=== PATIENT | female | born 1965 | race Caucasian/White ===

== ENCOUNTER 2017-06-25 09:15 | Observation (INO) | payer BC, OTHER ==
[2017-06-25] MEDS ORDERED: Sodium Chloride 0.9% 2.5 ML Syringe FLUSH PRN (09:32)
[2017-06-25] MEDS ORDERED: Sodium Chloride 0.9% 10 ML Syringe FLUSH PRN (09:32)
[2017-06-25] MEDS ORDERED: Aspirin 81 MG Tab.Chew PO ONE (09:32)
--- NOTE | 2017-06-25 09:37 | EDM.PDOC ---
ED HPI GENERAL MEDICAL PROBLEM - General Chief Complaint: Chest Pain Stated Complaint: CHEST PAIN Time Seen by Provider: 06/25/17 09:21 - History of Present Illness INITIAL COMMENTS - FREE TEXT/NARRATIVE: HISTORY AND PHYSICAL: History of present illness: The patient is a 52-year-old female who has no regular medical provider has a history of mitral valve prolapse and going through the menopause naturally and presents with complaints of acute onset of chest pain located underneath her left breast that started after she was sitting on the floor writing out cards and stood up. Patient said she had a normal day yesterday and slept normally and woke up at her usual time. She was having a normal morning when this occurred. She has no systemic complaints of cough runny nose sore throat and abdominal pain vomiting or diarrhea and has had no leg pain or swelling. Patient states that when she stood up she felt a sudden sharp pain underneath her breasts on the left and has been coming and going in nature. It is very localized to one area and does not radiate. It is not associated with diaphoresis nausea or abdominal pain lightheadedness but she did have some shortness of breath. She had a cardiac workup including EKG and echocardiogram 7 years ago for what was diagnosed as panic attacks but never had a stress test at that time. 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 for many years. She has no social history and her only family history is of a father who had a heart attack at 44 years of age but who was morbidly obese at over 400 pounds and had other medical conditions. Currently in the ED patient has no discomfort. She says that she took in Ecotrin before coming here but it was . The patient states that deep breaths and movement did not make the pain occur. She has no recent history of trauma Review of systems: As per history of present illness and below otherwise all systems reviewed and negative. Past medical history: As per history of present illness and as reviewed below otherwise noncontributory. Surgical history: As per history of present illness and as reviewed below otherwise noncontributory. Social history: No reported history of drug or alcohol abuse. Family history: As per history of present illness and as reviewed below otherwise noncontributory. Physical exam: Gen.: Well-developed well-nourished female who speaks clearly and easily in the ED without distress. Vital signs were noted by me. HEENT: Atraumatic, normocephalic, negative for conjunctival pallor or scleral icterus, mucous membranes moist, throat clear, neck supple, nontender, trachea midline. Lungs: Clear to auscultation, breath sounds equal bilaterally, chest nontender. There is no work of breathing no palpable bony deformities crepitus or erythema and no left breast tenderness. I unable to reproduce the pain on palpation or with deep breaths. Heart: S1S2, regular, negative for clicks, rubs, or JVD. Abdomen: Soft, nondistended, nontender. Negative for masses or hepatosplenomegaly. Negative for costovertebral tenderness. Pelvis: Stable nontender. Genitourinary: Deferred. Rectal: Deferred. Extremities: Atraumatic, negative for cords or calf pain. Neurovascular unremarkable. No pedal edema or leg asymmetry Neuro: Awake, alert, oriented. Cranial nerves II through XII unremarkable. Cerebellum unremarkable. Motor and sensory unremarkable throughout. Exam nonfocal. Skin: Normal turgor no evidence of diaphoresis and no overt rashes or lesions Diagnostics: EKG chest x-ray CBC CMP INR amylase lipase troponin d-dimer Therapeutics: IV O2 monitor 4 baby aspirin Because the d-dimer is slightly positive we will proceed to perform a CTA of the chest. We will disposition pending those results. She states that she has been here she has had a little twinge of pain but it has not lasted and she and her significant other are aware of the need to do this test and she is agreeable. Please note that during CTA of the chest the technologist told me that the IV was kinked and there was extravasation of dye in the left arm. They were able to complete the test with a second IV placed; the patient never complained of severe pain with this event. There is swelling appreciated in this region of the left humeral soft tissue region but the compartment is soft and I've explained expectant conservative management of that problem 1135: Testing results were discussed with the patient and at bedside. I have discussed need for observation admission and the patient is agreeable to do this. I did have a lengthy conversation with both her and her about the testing results and the reasons for admission and during my conversation the patient was very pleasant and interactive with the was very confrontational with me challenging me on the complication of the extravasation of the IV and potential other problems that could occur during this hospitalization. I will notify the hospitalist of these events as well as the admission and will also talk to the nurse shipfitters supervisor. I tried to reassure both the patient and the that every attempt is always made to avoid complications but these things sometimes happen and this is a correctable problem. Impression: Episodic left-sided chest pain rule out ACS Definitive disposition and diagnosis as appropriate pending reevaluation and review of above. Left Chest Pain Score (Numeric/FACES): 5 - Related Data Allergies Allergy/AdvReac Type Severity Reaction Status Date / Time codeine Allergy Nausea Verified 06/25/17 09:26 Home Meds: Home Meds Fish Oil/DHA/EPA [Fish Oil 1,200 MG] 06/25/17 [History] Iron,Carbonyl/Vit C/Vit B12/Fa [Iron 100 Plus Tablet] 06/25/17 [History] Magnesium 06/25/17 [History] Vit D3/Folic Acid/B2/B6/B12 [Folgard Tablet] 06/25/17 [History] ED ROS GENERAL - Review of Systems Review Of Systems: ROS reveals no pertinent complaints other than HPI. ED EXAM, GENERAL - Physical Exam Exam: See Below (See dictation) Course - Vital Signs Last Recorded V/S: Last Vital Signs Temp 36.6 C 06/25/17 11:14 Pulse 57 L 06/25/17 11:14 Resp 18 06/25/17 11:14 BP 116/78 06/25/17 11:14 Pulse Ox 100 06/25/17 11:14 - Orders/Labs/Meds Orders: Active Orders 24 hr Category Date Time Status Cardiac Monitoring [RC] . DIRECTED Care 06/25/17 09:31 Active EKG Documentation Completion [RC] STAT Care 06/25/17 09:31 Active Oxygen Therapy, ED [RC] ASDIRECTED Care 06/25/17 09:31 Active Pulse Oximetry [RC] ASDIRECTED Care 06/25/17 09:31 Active Sodium Chloride 0.9% [Saline Flush] Med 06/25/17 09:32 Active 10 ml FLUSH ASDIRECTED PRN Sodium Chloride 0.9% [Saline Flush] Med 06/25/17 09:32 Active 2.5 ml FLUSH ASDIRECTED PRN Saline Lock Insert [OM.PC] Stat Oth 06/25/17 09:31 Ordered Medication Orders Sodium Chloride (Saline Flush) 10 ml FLUSH ASDIRECTED PRN PRN Reason: Keep Vein Open Last Admin: 06/25/17 09:20 Dose: 10 ml Sodium Chloride (Saline Flush) 2.5 ml FLUSH ASDIRECTED PRN PRN Reason: Keep Vein Open Last Admin: 06/25/17 09:21 Dose: 2.5 ml Labs: Laboratory Tests 06/25/17 06/25/17 06/25/17 Range/Units 09:34 09:34 09:34 WBC 4.59 (4.0-11.0) K/uL RBC 4.29 L (4.30-5.90) M/uL Hgb 13.4 (12.0-16.0) g/dL Hct 38.2 (36.0-46.0) % MCV 89.0 (80.0-98.0) fL MCH 31.2 (27.0-32.0) pg MCHC 35.1 (31.0-37.0) g/dL RDW Std Deviation 39.0 (28.0-62.0) fl RDW Coeff of Chemo 12 (11.0-15.0) % Plt Count 247 (150-400) K/uL MPV 10.50 (7.40-12.00) fL Neut % (Auto) 50.6 (48.0-80.0) % Lymph % (Auto) 36.8 (16.0-40.0) % [place] % (Auto) 8.3 (0.0-15.0) % Eos % (Auto) 3.9 (0.0-7.0) % Baso % (Auto) 0.4 (0.0-1.5) % Neut # (Auto) 2.3 (1.4-5.7) K/uL Lymph # (Auto) 1.7 (0.6-2.4) K/uL [place] # (Auto) 0.4 (0.0-0.8) K/uL Eos # (Auto) 0.2 (0.0-0.7) K/uL Baso # (Auto) 0.0 (0.0-0.1) K/uL Nucleated RBC % 0.0 /100WBC Nucleated RBCs # 0 K/uL INR 1.02 (0.86-1.11) D-Dimer, Quantitative (0.0-0.52) mg/LFEU Sodium 141 (136-146) mmol/L Potassium 3.9 (3.5-5.1) mmol/L Chloride 107 (98-110) mmol/L Carbon Dioxide 25 (21-31) mmol/L BUN 12 (6.0-23.0) mg/dL Creatinine 0.8 (0.6-1.5) mg/dL Est Cr Clr Drug Dosing TNP Estimated GFR (MDRD) > 60.0 ml/min Glucose 91 (60-110) mg/dL Calcium 9.3 (8.8-10.8) mg/dL Total Bilirubin 0.9 (0.1-1.5) mg/dL AST 19 (5-40) IU/L ALT 12 (8-54) IU/L Alkaline Phosphatase 37 L (40-150) Troponin I (0.0-0.29) NG/ML Total Protein 7.1 (6.0-8.0) g/dL Albumin 4.0 (3.5-5.0) g/dL Globulin 3.1 (2.0-3.5) g/dL Albumin/Globulin Ratio 1.3 (1.3-2.8) Amylase 36 (10-90) U/L Lipase 22 (7-80) U/L 06/25/17 06/25/17 Range/Units 09:34 09:34 WBC (4.0-11.0) K/uL RBC (4.30-5.90) M/uL Hgb (12.0-16.0) g/dL Hct (36.0-46.0) % MCV (80.0-98.0) fL MCH (27.0-32.0) pg MCHC (31.0-37.0) g/dL RDW Std Deviation (28.0-62.0) fl RDW Coeff of Chemo (11.0-15.0) % Plt Count (150-400) K/uL MPV (7.40-12.00) fL Neut % (Auto) (48.0-80.0) % Lymph % (Auto) (16.0-40.0) % [place] % (Auto) (0.0-15.0) % Eos % (Auto) (0.0-7.0) % Baso % (Auto) (0.0-1.5) % Neut # (Auto) (1.4-5.7) K/uL Lymph # (Auto) (0.6-2.4) K/uL [place] # (Auto) (0.0-0.8) K/uL Eos # (Auto) (0.0-0.7) K/uL Baso # (Auto) (0.0-0.1) K/uL Nucleated RBC % /100WBC Nucleated RBCs # K/uL INR (0.86-1.11) D-Dimer, Quantitative 0.67 H (0.0-0.52) mg/LFEU Sodium (136-146) mmol/L Potassium (3.5-5.1) mmol/L Chloride (98-110) mmol/L Carbon Dioxide (21-31) mmol/L BUN (6.0-23.0) mg/dL Creatinine (0.6-1.5) mg/dL Est Cr Clr Drug Dosing Estimated GFR (MDRD) ml/min Glucose (60-110) mg/dL Calcium (8.8-10.8) mg/dL Total Bilirubin (0.1-1.5) mg/dL AST (5-40) IU/L ALT (8-54) IU/L Alkaline Phosphatase (40-150) Troponin I < 0.10 (0.0-0.29) NG/ML Total Protein (6.0-8.0) g/dL Albumin (3.5-5.0) g/dL Globulin (2.0-3.5) g/dL Albumin/Globulin Ratio (1.3-2.8) Amylase (10-90) U/L Lipase (7-80) U/L Meds: Medications Generic Name Dose Route Start Last Admin Trade Name Freq PRN Reason Stop Dose Admin Sodium Chloride 10 ml 06/25/17 09:32 06/25/17 09:20 Saline Flush FLUSH 10 ml ASDIRECTED PRN Administration Keep Vein Open Sodium Chloride 2.5 ml 06/25/17 09:32 06/25/17 09:21 Saline Flush FLUSH 2.5 ml ASDIRECTED PRN Administration Keep Vein Open Discontinued Medications Generic Name Dose Route Start Last Admin Trade Name Freq PRN Reason Stop Dose Admin Aspirin 324 mg 06/25/17 09:32 06/25/17 09:38 Aspirin PO 06/25/17 09:33 324 mg ONETIME ONE Administration Departure - Departure Time of Disposition: 11:40 Disposition: Refer to Observation Condition: Good Clinical Impression: Chest pain Qualifiers: Chest pain type: other chest pain Qualified Code(s): R07.89 - Other chest pain ; R07.8 - Other chest pain - Discharge Information Referrals: PCP,None [Primary Care Provider] - Forms: ED Department Discharge - My Orders Last 24 Hours: My Active Orders 06/25/17 09:31 Cardiac Monitoring [RC] . DIRECTED EKG Documentation Completion [RC] STAT Oxygen Therapy, ED [RC] ASDIRECTED Pulse Oximetry [RC] ASDIRECTED Saline Lock Insert [OM.PC] Stat 06/25/17 09:32 Sodium Chloride 0.9% [Saline Flush] 10 ml FLUSH ASDIRECTED PRN Sodium Chloride 0.9% [Saline Flush] 2.5 ml FLUSH ASDIRECTED PRN - Assessment/Plan Last 24 Hours: My Active Orders 06/25/17 09:31 Cardiac Monitoring [RC] . DIRECTED EKG Documentation Completion [RC] STAT Oxygen Therapy, ED [RC] ASDIRECTED Pulse Oximetry [RC] ASDIRECTED Saline Lock Insert [OM.PC] Stat 06/25/17 09:32 Sodium Chloride 0.9% [Saline Flush] 10 ml FLUSH ASDIRECTED PRN Sodium Chloride 0.9% [Saline Flush] 2.5 ml FLUSH ASDIRECTED PRN
[2017-06-25 10:12] LABS: CHLORIDE,CL 107 mmol/L (98-110); SODIUM,NA 141 mmol/L (136-146)
--- NOTE | 2017-06-25 10:15 | CR ---
EXAMINATION: Portable chest radiograph. HISTORY: Shortness of breath. FINDINGS: The trachea is midline. The cardiomediastinal silhouette is within normal limits. No pulmonary infilt rates, effusions or pneumothorax. Osseous structures appear unremarkable. IMPRESSION: No acute cardiopulmonary process.
--- NOTE | 2017-06-25 11:24 | CT ---
EXAMINATION: CTA chest HISTORY: Pain COMPARISON: Chest radiograph from the same day. TECHNIQUE: Axial CT images obtained through the chest following the administration of 50 mL of Isovue -370 the right antecubital fossa. Coronal and sagittal reconstructions obtained. FINDINGS: The lungs are clear without focal consolidation. No pleural effusion or pneumothorax. Scarr ing is noted within the left lung base. No pleural effusion or pneumothorax. The heart is normal in s ize without a pericardial effusion. Thoracic aorta is normal in caliber. The main and central pulmona ry arteries are patent without evidence of a pulmonary embolism. No mediastinal or hilar lymphadenopa thy. No axillary lymphadenopathy. The central airways are clear. No suspicious osseous abnormalities. IMPRESSION: 1. No acute cardiopulmonary finding or pulmonary embolism identified.
[2017-06-25] MEDS ORDERED: Iopamidol 755 MG/ML 500 ML Multipack Bottle IVPUSH STA (11:42)
--- NOTE | 2017-06-25 13:20 | PCM.HP ---
<Justina,Renato - Last Filed: 06/25/17 13:35> H&P History of Present Illness - General Date of Service: 06/25/17 Admit Problem/Dx: Admission Diagnosis/Problem Admission Diagnosis/Problem Chest pain in adult Source of Information: Patient History Limitations: Reports: No Limitations - History of Present Illness Initial Comments - Free Text/Narative: 52 yo fm admitted for chest pain r/o. Her chest pain began at 830 am this morning. She was sitting down at the time. Pain began suddenly. Pain was located under the left chest, it was sharp, intermittent, lasted 10 minutes, occurring in 30-45 minute intervals. Pain was non-radiating. Intensity was 5/ 10. SHe had some associated sob. She denies any fever, chills, cough, nausea, vomiting, vision change, headache, syncope, diarrhea, urinary changes, weakness , numbness, tingling or change in mental status. Her pmh is significant only for mvp that was diagnosed via echo. SHe has not other medical history. SHe does not take any medications. She does not use alcohol. She does not use tobacco. Left Chest Pain Score (Numeric/FACES): 5 - Related Data Allergies/Adverse Reactions: Allergies Allergy/AdvReac Type Severity Reaction Status Date / Time codeine Allergy Nausea Verified 06/25/17 09:26 Home Medications: Home Meds Fish Oil/DHA/EPA [Fish Oil 1,200 MG] 06/25/17 [History] Iron,Carbonyl/Vit C/Vit B12/Fa [Iron 100 Plus Tablet] 06/25/17 [History] Magnesium 06/25/17 [History] Vit D3/Folic Acid/B2/B6/B12 [Folgard Tablet] 06/25/17 [History] Past Medical History - Past Health History Medical/Surgical History: Denies Medical/Surgical History Cardiovascular History: Reports: Other (See Below) Other Cardiovascular History: mitral valve prolapse 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 History: Reports: Other (See Below) Other OB/BYN History: laparoscopy Psychiatric History: Reports: Panic Attack - Infectious Disease History Infectious Disease History: Reports: Chicken Pox - Past Surgical History Musculoskeletal Surgical History: Reports: Other (See Below) Other Musculoskeletal Surgeries/Procedures:: bunionectomy Social & Family History - Family History Cardiac: Reports: [place] Other Cardiac Family History: father of a heart attack at age 43 or 44 - Tobacco Use Smoking Status *Q: Never Smoker Second Hand Smoke Exposure: No - Caffeine Use Caffeine Use: Reports: None - Recreational Drug Use Recreational Drug Use: No H&P Review of Systems - Review of Systems: Review Of Systems: See Below General: Reports: No Symptoms HEENT: Reports: No Symptoms Pulmonary: Reports: No Symptoms Cardiovascular: Reports: Chest Pain Gastrointestinal: Reports: No Symptoms Genitourinary: Reports: No Symptoms Musculoskeletal: Reports: No Symptoms Skin: Reports: No Symptoms Psychiatric: Reports: No Symptoms Neurological: Reports: No Symptoms Hematologic/Lymphatic: Reports: No Symptoms Immunologic: Reports: No Symptoms Exam - Exam Exam: See Below - Vital Signs Vital Signs: Last Vital Signs Temp 37.1 C 06/25/17 12:30 Pulse 55 L 06/25/17 12:30 Resp 18 06/25/17 12:30 BP 128/74 06/25/17 12:30 Pulse Ox 99 06/25/17 12:30 Weight: 64.592 kg - Exam General: Alert, Oriented, 4 HEENT: Conjunctiva Clear, EACs Clear, EOMI, Hearing Intact, Mucosa Moist & [place] , Nares Patent, Normal Nasal Septum Neck: Supple, Trachea Midline, 2 Lungs: Clear to Auscultation, Normal Respiratory Effort Cardiovascular: Regular Rate, Regular Rhythm GI/Abdominal Exam: Normal Bowel Sounds, Soft, Non-Tender, No Organomegaly, No Distention, No Abnormal Bruit, No Mass, Pelvis Stable Back Exam: Normal Inspection, Full Range of Motion, NT Extremities: Normal Inspection, Normal Range of Motion, Non-Tender, No Pedal Edema, Normal Capillary Refill Peripheral Pulses: 2+: Carotid (L), Carotid (R) Skin: Warm, Dry, Intact Neurological: Cranial Nerves Intact, Reflexes Equal Bilateral Neuro Extensive - Mental Status: Alert, Oriented x3, Normal Mood/Affect, Normal Cognition Psychiatric: Alert, Normal Affect, Normal Mood - Patient Data Result Diagrams: 06/25/17 09:34 06/25/17 09:34 *Q Meaningful Use (ADM) - VTE *Q VTE Criteria *Q: - Stroke *Q Stroke Criteria *Q: - AMI *Q AMI Criteria *Q: Problem List Initiated/Reviewed/Updated: Yes Orders Last 24hrs: Medication Orders Sodium Chloride (Saline Flush) 10 ml FLUSH ASDIRECTED PRN PRN Reason: Keep Vein Open Last Admin: 06/25/17 09:20 Dose: 10 ml Sodium Chloride (Saline Flush) 2.5 ml FLUSH ASDIRECTED PRN PRN Reason: Keep Vein Open Last Admin: 06/25/17 09:21 Dose: 2.5 ml Assessment/Plan Comment:: 52 year old with pmh of MVP admitted for chest pain. She has no other pmh. She takes no medications. Pain resolved in ED. ED work-up included CBC/CMP/TSH/ Troponin/EKG/CXR/Angiography. All negative except slightly elevated D-Dimer. 1. Chest Pain: admit to observation. telemetry. troponin x3. 2. DVT Prophylaxis: Lovenox <Cristofer Singh - Last Filed: 06/25/17 16:15> H&P History of Present Illness - General Admit Problem/Dx: Admission Diagnosis/Problem I performed a history and physical examination of the patient and I have discussed the management with the resident. I have reviewed the residents note and agree with the documented findings and plan of care. Admission Diagnosis/Problem Chest pain in adult Exam - Vital Signs Vital Signs: Last Vital Signs Temp 37.1 C 06/25/17 15:33 Pulse 62 06/25/17 15:33 Resp 20 06/25/17 15:33 BP 107/65 06/25/17 15:33 Pulse Ox 97 06/25/17 15:33 - Patient Data Result Diagrams: 06/25/17 09:34 06/25/17 09:34 *Q Meaningful Use (ADM) - VTE *Q VTE Criteria *Q: - Stroke *Q Stroke Criteria *Q: - AMI *Q AMI Criteria *Q: Orders Last 24hrs: Active Orders 24 hr Category Date Time Status Patient Status [ADT] Routine ADT 06/25/17 13:23 Active May Shower [RC] ASDIRECTED Care 06/25/17 13:23 Active Oxygen Therapy [RC] PRN Care 06/25/17 13:23 Active Telemetry Monitoring [Cardiac Monitoring] [RC] . Care 06/25/17 11:47 Active DIRECTED Up ad [place] [RC] ASDIRECTED Care 06/25/17 13:23 Active VTE/DVT Education [RC] PER UNIT ROUTINE Care 06/25/17 13:23 Active Vital Signs [RC] Q4H Care 06/25/17 13:23 Active Regular Diet [DIET] Diet 06/25/17 Dinner Active TROPONIN I [CHEM] Routine Lab 06/25/17 15:35 Received TROPONIN I [CHEM] Routine Lab 06/25/17 21:30 Ordered Enoxaparin [Lovenox] Med 06/25/17 14:00 Active 40 mg SUBCUT Q24H Resuscitation Status Routine Resus Stat 06/25/17 13:23 Ordered Medication Orders Enoxaparin Sodium (Lovenox) 40 mg SUBCUT Q24H JAVIER Last Admin: 06/25/17 14:08 Dose: 40 mg Sodium Chloride (Saline Flush) 10 ml FLUSH ASDIRECTED PRN PRN Reason: Keep Vein Open Last Admin: 06/25/17 09:20 Dose: 10 ml Sodium Chloride (Saline Flush) 2.5 ml FLUSH ASDIRECTED PRN PRN Reason: Keep Vein Open Last Admin: 06/25/17 09:21 Dose: 2.5 ml
[2017-06-25] MEDS ORDERED: Enoxaparin 40 MG/0.4 ML Syringe SUBCUT SCH (14:00)
--- NOTE | 2017-06-26 06:07 | PCM.DCSUM1 ---
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 Her MVP was previously found on echo many years ago. She has no other history and takes no medications. Pain was left sided, intermittent, 5/10. It resolved shortly after coming into ED. She was admitted to floor for observation and Telemetry. Pain did not recur. No audible murmur on exam. She did experience some local bleeding at her IV site on her left arm that resolved shortly after elevating her arm and placing ice. Overnight Telemetry was Sinus Rhythm with PVC's and Troponin x3 were negative. She was discharged home following day. F/u appointment was set-up with Dr. Wagner. She was informed to contact her PCP Dr. España if there is any streaking or drainage from IV site, development of redness of overlying skin or worsening of pain/swelling. Admission Diagnosis: 1. Chest Pain 2. PMH Mitral Valve Prolapse Discharge Diagnosis: 1. Chest Pain, resolved 2. PVC 3. PMH Mitral Valve Prolapse 4. Local IV site Inflammation, improving - Discharge Data Discharge Date: 06/26/17 Discharge Disposition: Home, Self-Care 01 Condition: Good - Patient Instructions Diet: Regular Diet as Tolerated Activity: As Tolerated Driving: May Drive Today Showering/Bathing: May Shower Notify Provider of: Fever, Increased Pain, Swelling and Redness, Drainage, Nausea and/or Vomiting Other/Special Instructions: Contact PCP if there is any streaking or drainage from IV site, development of redness of overlying skin or worsening of pain/ swelling. - Discharge Plan Home Medications: Home Meds Fish Oil/DHA/EPA [Fish Oil 1,200 MG] 06/25/17 [History] Iron,Carbonyl/Vit C/Vit B12/Fa [Iron 100 Plus Tablet] 06/25/17 [History] Magnesium 06/25/17 [History] Vit D3/Folic Acid/B2/B6/B12 [Folgard Tablet] 06/25/17 [History] Patient Handouts: Nonspecific Chest Pain, [id number] Referrals: Nila Wagner MD [Physician] - 07/02/17 8:00 am Travis España MD [Physician] - (Call the clinic on Wednesday to set up a follow- up appointment with Dr. España.) - Discharge Summary/Plan Comment DC Time >30 min.: No - Patient Data Vitals - Most Recent: Last Vital Signs Temp 36.8 C 06/26/17 04:00 Pulse 67 06/26/17 04:00 Resp 16 06/26/17 04:00 BP 107/64 06/26/17 04:00 Pulse Ox 99 06/26/17 04:00 Weight - Most Recent: 64.592 kg I&O - Last 24 hours: Intake & Output 06/25/17 06/25/17 06/26/17 14:59 22:59 06:59 Intake Total 800 650 Output Total 0 Balance 800 650 Lab Results - Last 24 hrs: Laboratory Results - last 24 hr 06/25/17 06/25/17 Range/Units 15:35 21:32 Troponin I < 0.10 < 0.10 (0.0-0.29) NG/ML Med Orders - Current: Current Medications Enoxaparin Sodium (Lovenox) 40 mg SUBCUT Q24H [facility] Last Admin: 06/25/17 14:08 Dose: 40 mg Sodium Chloride (Saline Flush) 10 ml FLUSH ASDIRECTED PRN PRN Reason: Keep Vein Open Last Admin: 06/25/17 09:20 Dose: 10 ml Sodium Chloride (Saline Flush) 2.5 ml FLUSH ASDIRECTED PRN PRN Reason: Keep Vein Open Last Admin: 06/25/17 09:21 Dose: 2.5 ml Discontinued Medications Aspirin (Aspirin) 324 mg PO ONETIME ONE Stop: 06/25/17 09:33 Last Admin: 06/25/17 09:38 Dose: 324 mg Iopamidol (Isovue Multipack-370 (76%)) 50 ml IVPUSH ONETIME STA Stop: 06/25/17 11:43 Last Admin: 06/25/17 11:44 Dose: 50 ml *Q Meaningful Use (DIS) - VTE *Q VTE Criteria *Q: - Stroke *Q Stroke Criteria *Q: - AMI *Q AMI Criteria *Q: <Cristofer Singh - Last Filed: 06/26/17 11:20> Discharge Summary - Hospital Course Free Text/Narrative:: I was present with the resident during history and examination. I discussed the case with the resident and agree with the findings and plan as documented in the residents note. - Patient Data Vitals - Most Recent: Last Vital Signs Temp 36.2 C 06/26/17 08:00 Pulse 63 06/26/17 08:00 Resp 22 H 06/26/17 08:00 BP 98/61 06/26/17 08:00 Pulse Ox 99 06/26/17 08:00 I&O - Last 24 hours: Intake & Output 06/25/17 06/26/17 06/26/17 22:59 06:59 14:59 Intake Total 507 916 5392 Output Total 0 Balance 556 147 0586 Lab Results - Last 24 hrs: Laboratory Results - last 24 hr 06/25/17 06/25/17 Range/Units 15:35 21:32 Troponin I < 0.10 < 0.10 (0.0-0.29) NG/ML Med Orders - Current: Current Medications Discontinued Medications Aspirin (Aspirin) 324 mg PO ONETIME ONE Stop: 06/25/17 09:33 Last Admin: 06/25/17 09:38 Dose: 324 mg Enoxaparin Sodium (Lovenox) 40 mg SUBCUT Q24H [facility] Last Admin: 06/25/17 14:08 Dose: 40 mg Iopamidol (Isovue Multipack-370 (76%)) 50 ml IVPUSH ONETIME STA Stop: 06/25/17 11:43 Last Admin: 06/25/17 11:44 Dose: 50 ml Sodium Chloride (Saline Flush) 10 ml FLUSH ASDIRECTED PRN PRN Reason: Keep Vein Open Last Admin: 06/25/17 09:20 Dose: 10 ml Sodium Chloride (Saline Flush) 2.5 ml FLUSH ASDIRECTED PRN PRN Reason: Keep Vein Open Last Admin: 06/25/17 09:21 Dose: 2.5 ml *Q Meaningful Use (DIS) - VTE *Q VTE Criteria *Q: - Stroke *Q Stroke Criteria *Q: - AMI *Q AMI Criteria *Q:
[2017-06-26 08:04] VITALS: BP 98/61
== END 2017-06-26 09:50 | disposition home or self-care (01) ==
LOC: MW.ED 09:15 → MW.MS 11:41
PROVIDERS: ADMIT Internal Medicine; ATTEND Internal Medicine
DX: R07.9 Chest pain, unspecified (principal); I49.3 Ventricular premature depolarization; I34.1 Nonrheumatic mitral (valve) prolapse; Z88.5 Allergy status to narcotic agent; Z79.899 Other long term (current) drug therapy; Z98.890 Other specified postprocedural states; Z82.49 Family history of ischemic heart disease and other diseases of the circulatory system
CPT/HCPCS: 36415; 71010; 71275; 80053; 82150; 83690; 84484; 85025; 85379; 85610; 93005; 96372; 99285; A9270; G0378; J1650; Q9967; 99284

== ENCOUNTER 2022-04-21 10:31 | Day surgery (SDC) | payer BC, OTHER ==
[~2022-04-21 10:31] MED LIST: Albuterol 0.083% 2.5 MG/3 ML Neb Soln NEB PRN; HYDROmorphone 1 MG/ML Syringe IVPUSH PRN; Lactated Ringers 1,000 ML IV SCH; Lidocaine 2% 5 ML SDV ONE; Magnesium Sulfate (4.06 MEQ/ML) 5 GM/10 ML SDV ONE; Metoclopramide 10 MG/2 ML SDV IVPUSH PRN; Morphine 4 MG/ML VIAL IVPUSH PRN; Naloxone 0.4 MG/ML SDV IVPUSH PRN; Ondansetron 4 MG/2 ML SDV IVPUSH PRN; Rocuronium Bromide 50 MG/5 ML Syringe ONE; Scopolamine 1.5 MG Transdermal Patch TOP ONE; Sodium Chloride 0.9% 10 ML Syringe FLUSH PRN; Sodium Chloride 0.9% 2.5 ML Syringe FLUSH PRN; Sodium Chloride 0.9% 20 ML SDV IV PRN; ceFAZolin 1 GM in Premix Bag 1 BAG IV ONE; fentaNYL 50 MCG/ML SDV IVPUSH PRN
[2022-04-21] MEDS ORDERED: propofoL 100 ML ONE (10:34)
[2022-04-21] MEDS ORDERED: fentaNYL 100 MCG/2 ML SDV ONE (10:34)
[2022-04-21] MEDS ORDERED: Scopolamine 1.5 MG Transdermal Patch ONE (11:13)
[2022-04-21] MEDS ORDERED: Magnesium Sulfate (4.06 MEQ/ML) 5 GM/10 ML SDV ONE (11:23)
[2022-04-21] MEDS ORDERED: Morphine 4 MG/ML VIAL ONE ×2 (11:24)
[2022-04-21] MEDS ORDERED: Dexamethasone 4 MG/ML 5 ML MDV ONE (11:26)
[2022-04-21 11:42] LABS: CARBON DIOXIDE,CO2 26.5 mmol/L (21.0-32.0); POTASSIUM,K 3.9 mmol/L (3.5-5.1)
[2022-04-21] MEDS ORDERED: ePHEDrine 50 MG/ML SDV ONE (12:42)
[2022-04-21] MEDS ORDERED: Fluorescein 5 ML Vial ONE (12:52)
[2022-04-21] MEDS ORDERED: Furosemide 40 MG/4 ML VIAL ONE (12:52)
[2022-04-21] MEDS ORDERED: Ketorolac 30 MG/ML SDV ONE (13:01)
[2022-04-21] MEDS ORDERED: Ondansetron 4 MG/2 ML SDV ONE (13:01)
[2022-04-21] MEDS ORDERED: Sugammadex Sodium 200 MG/2 ML VIAL ONE (13:01)
[2022-04-21] MEDS ORDERED: Ondansetron 4 MG/2 ML SDV IVPUSH PRN (13:57)
[2022-04-21] MEDS ORDERED: Morphine 4 MG/ML VIAL IVPUSH PRN (13:57)
[2022-04-21] MEDS ORDERED: Promethazine 25 MG/ML SDV IM PRN (13:57)
[2022-04-21] MEDS ORDERED: Acetaminophen/oxyCODONE 325-5 MG Tab PO PRN (13:57)
[2022-04-21] MEDS ORDERED: Ketorolac 30 MG/ML SDV IVPUSH ONE (13:57)
[2022-04-21] MEDS ORDERED: Lactated Ringers 1,000 ML IV SCH (14:00)
[2022-04-21] MEDS: Ketorolac 30 MG/ML SDV IVPUSH SCH (19:31)
[2022-04-21] MEDS: Acetaminophen/oxyCODONE 325-5 MG Tab PO PRN (21:52)
[2022-04-22] MEDS: Ketorolac 30 MG/ML SDV IVPUSH SCH ×2 (01:36→07:36)
[2022-04-22 04:18] VITALS: BP 103/63; PULSE 70
[2022-04-22 05:30] LABS: CARBON DIOXIDE,CO2 30.8 mmol/L (21.0-32.0); POTASSIUM,K 4.3 mmol/L (3.5-5.1)
[2022-04-22] MEDS: Acetaminophen/oxyCODONE 325-5 MG Tab PO PRN (08:55)
== END 2022-04-22 09:55 | disposition home or self-care (01) ==
LOC: MW.SDS 10:31 → MW.OB 12:00 → MW.SDS 04-22 09:55
PROVIDERS: ATTEND Obstetrics & Gynecology
DX: D25.1 Intramural leiomyoma of uterus (principal); N81.2 Incomplete uterovaginal prolapse; N72 Inflammatory disease of cervix uteri; N80.0 Endometriosis of uterus; Z88.5 Allergy status to narcotic agent; Z98.890 Other specified postprocedural states; Z01.812 Encounter for preprocedural laboratory examination; Z20.822 Contact with and (suspected) exposure to COVID-19
CPT/HCPCS: 36415; 57240; 58260; 58301; 80048; 84703; 85025; 85027; 86850; 86900; 86901; 87635; A9270; J0131; J0690; J1100; J1170; J1885; J1940; J2704; J3010; J3475; J3490; J7030; J7120; 00944; J2270; J2405; U0002